=== PATIENT | male | born 1965 | race Caucasian/White ===

== ENCOUNTER 2025-08-23 11:06 | Emergency (ER) | payer OTHER ==
[~2025-08-23] VITALS: Ht 182.9 cm; Wt 53.7 kg
[2025-08-23] MEDS ORDERED: ISOVUE-370 76% 100 ML VIAL As Ordered ONE (14:39)
[2025-08-23 14:47] LABS: BASO # 0.1 10^3/uL (0.0-0.2); BASO % 0.4 % (0.0-1.0); EOS # 0.0 10^3/uL (0.0-0.5); EOS % 0.0 % (0.0-3.0); LYMPH # 0.8 10^3/uL (1.5-5.0); LYMPH % 5.4 % (24.0-44.0); MONO # 1.3 10^3/uL (0.0-0.8); MONO % 8.4 % (2.0-8.0); NEUTROPHILS # 13.2 10^3/uL (1.5-8.5); NEUTROPHILS % 85.3 % (36.0-66.0); PLATELET COUNT, AUTOMATED 443 10^3/uL (150-450)
[2025-08-23] MEDS: NS (Normal Saline) 0.9% 1,000 ML IV ONE ×3 (14:52→22:53)
[2025-08-23 15:09] LABS: CALCIUM LEVEL 9.6 MG/DL (8.5-10.1); CARBON DIOXIDE LEVEL 31 MMOL/L (20-31); CHLORIDE LEVEL 97 MMOL/L (98-107); CREATININE FOR GFR 0.75 MG/DL (0.70-1.30); GLOMERULAR FILTRATION RATE > 90.0 (>56); POTASSIUM SERUM 4.3 MMOL/L (3.5-5.1); SODIUM LEVEL 137 MMOL/L (136-145)
[2025-08-23 15:12] LABS: FREE T4 1.12 NG/DL (0.89-1.76)
[2025-08-23 19:22] LABS: LDH LACTATE DEHYDROGENASE 172 U/L (120-246)
[2025-08-23] MEDS: PIPERACILLIN/TAZOBACTAM SOD 3.375 GM in DEXTROSE 5% (D5W) ADV/MINI-BAG 50 ML IV ONE (21:44)
[2025-08-23] MEDS ORDERED: PIPERACILLIN/TAZOBACTAM SOD 3.375 GM in DEXTROSE 5% (D5W) ADV/MINI-BAG 50 ML IV SCH (21:55)
[2025-08-24 00:03] VITALS: BP 108/57; TEMP 100; O2SAT 97
[2025-08-24] MEDS ORDERED: PIPERACILLIN/TAZOBACTAM SOD 3.375 GM in DEXTROSE 5% (D5W) ADV/MINI-BAG 50 ML IV SCH (04:00)
== END 2025-08-24 00:11 | disposition short-term general hospital (02) ==
LOC: M ED 11:06
DX: T17.910A Gastric contents in respiratory tract, part unspecified causing asphyxiation, initial encounter (principal); Q39.1 Atresia of esophagus with tracheo-esophageal fistula; K22.9 Disease of esophagus, unspecified
CPT/HCPCS: 70491; 71250; 74150; 80047; 80048; 83615; 84439; 84443; 85025; 87880; 96361; 96365; 99285; J2543; Q9967